=== PATIENT | female | born 1990 | race Caucasian/White ===

== ENCOUNTER 2023-07-23 08:35 | Outpatient (CLI) | payer BC ==
[2023-07-23] MEDS ORDERED: Magnevist 469MG/ML 20 ML VIAL ONE (10:27)
== END 2023-07-23 08:36 | disposition home or self-care (01) ==
LOC: CSHMRI 08:35
PROVIDERS: ATTEND Physician Assistant
DX: K76.89 Other specified diseases of liver (principal)
CPT/HCPCS: 74183; A9579